=== PATIENT | female | born 2000 | race Caucasian/White ===

== ENCOUNTER 2023-03-02 22:51 | Emergency (ER) | payer OTHER, SELFPAY ==
[2023-03-02 22:55] VITALS: BP 140/92; PULSE 88; RESP 18; TEMP 36.8; O2SAT 98; BMI 44.4
--- NOTE | 2023-03-02 23:06 | ECG_ITS ---
[facility] Test Date: 2023-03-02 Pat Name: Estefania Arriaga Department: Room: - Gender: Female Security Assessor: : 2000 Requested By: MELISSA HYATT Order Number: [id number] Reading MD: MELISSA HYATT Measurements Intervals [place] Rate: 120 P: -8 CO: 178 QRS: 3 QRSD: 70 T: 43 QT: 318 QTc: 389 Interpretive Statements 1120 Sinus tachycardia 3114 Cannot rule out anterior myocardial infarction, age undetermined 9150 abnormal ECG No previous ECG available for comparison Electronically Signed On 03-04-2023 6:22:49 EDT by MELISSA HYATT
--- NOTE | 2023-03-02 23:06 | ED_ITS ---
HPI - Psych General Chief Complaint: Psychiatric Symptoms Stated Complaint: SUCIDIAL Time Seen by Provider: 03/02/23 23:06 Source: Reports patient Mode of arrival: ambulance Limitations: Reports no limitations History of Present Illness HPI Narrative: the patient presented to us after she had suicidal thoughts her aunt and cousin as well we were worried about her, and he the patient expressed to them after she had a fight with her that she wants to kill herself by taking all her medication and her took her medication away from her Review of systems otherwise negative that the patient is not complaining of any pain at the moment or any other complaint Related Data Home Medications Medication Instructions Recorded Confirmed No Known Home Medications 03/02/23 03/02/23 Allergies Allergy/AdvReac Type Severity Reaction Status Date / Time naproxen [From Naprosyn] AdvReac Intermediate Nausea Verified 03/02/23 23:01 Review of Systems ROS Status of ROS 10 or more systems reviewed and unremarkable except as noted in history and below PFSH PFS Social History Smoking status: Current every day smoker Exam Narrative Exam Narrative: Nurses notes and vital signs reviewed and patient is not hypoxic. General: Well-appearing and in no apparent distress. Skin: Warm, dry, no pallor noted. No rash. Head: Normocephalic, atraumatic. Neck: Supple, non-tender. Eye: Pupils are equal, round and EOMI. No scleral icterus. Ears, Nose, Mouth, and Throat: TM are clear, no nasal mucosal hypertrophy. Oral mucosa is moist, no posterior oropharynx erythema, uvula is mid-line Cardiovascular: Regular Rate and Rhythm without murmur, gallop or rub. Respiratory: No accessory muscle use or respiratory distress. Lungs are clear to auscultation, no wheezing, rales or rhonchi Chest Wall: no tenderness Back: No midline thoracic or lumbar vertebral tenderness. No CVA tenderness Musculoskeletal: normal ROM, no calf or popliteal tenderness, no lower extremity edema/swelling GI: Abdomen is soft, non-distended. Normal bowel sounds. No masses appreciated. No tenderness to palpation. No rebound, guarding, or rigidity noted. Neurological: A&O x4. No cranial nerve dysfunction observed. No truncal ataxia. Moves all extremities. Sensation intact. Psychiatric: Cooperative and interactive. Normal mood and affect. Constitutional Vital Signs - 24 hr 03/02/23 22:55 03/02/23 23:30 Temperature 98.3 F Pulse Rate [Monitor] 88 Respiratory Rate 18 Blood Pressure [Right Arm] 140/92 H Pulse Oximetry 98 Oxygen Delivery Method Room Air Room Air Course Vital Signs Vital signs: Vital Signs Temperature 98.3 F 03/02/23 22:55 Pulse Rate 88 03/02/23 22:55 Respiratory Rate 18 03/02/23 22:55 Blood Pressure 140/92 H 03/02/23 22:55 Pulse Oximetry 98 03/02/23 22:55 Oxygen Delivery Method Room Air 03/02/23 22:55 Temperature 98.3 F 03/02/23 22:55 Pulse Rate 88 03/02/23 22:55 Respiratory Rate 18 03/02/23 22:55 Blood Pressure 140/92 H 03/02/23 22:55 Pulse Oximetry 98 03/02/23 22:55 Oxygen Delivery Method Room Air 03/02/23 23:30 MDM - Psych MDM Narrative Medical decision making narrative: the patient blood workup shows no acute significant pathology she was evaluated by [facility] and the patient was accepted by Dr. Adan for inpatient admission The patient did express that she wants to go [facility] before she was transferred and explained to her since her aunt and her cousin as well as to not okay with a safety plan that she still needs to be transferred at the moment to be evaluated due to the high risk of suicide and assessment at [facility] by the psychatrist is needed and pt is agreeble Lab Data Labs: Lab Results 03/02/23 03/02/23 Range/Units 23:07 23:17 WBC 12.7 H (4.0-11.0) 10^3/uL RBC 4.93 (4.20-5.40) 10^6/uL Hgb 12.8 (12.0-16.0) g/dL Hct 40.6 (36.0-48.0) % MCV 82.4 (81.0-99.0) fL MCH 26.0 L (26.7-34.0) pg MCHC 31.5 (29.9-35.2) g/dL RDW 14.9 (11.0-15.0) % Plt Count 248 (150-450) 10^3/uL MPV 12.3 (9.5-13.5) fL Neut % (Auto) 66.5 (43.0-75.0) % Lymph % (Auto) 25.8 (20.5-60.0) % [place] % (Auto) 6.8 (1.7-12.0) % Eos % (Auto) 0.4 L (0.9-7.0) % Baso % (Auto) 0.3 (0.2-2.0) % Neut # (Auto) 8.4 H (1.4-6.5) 10^3/uL Lymph # (Auto) 3.3 (1.2-3.8) 10^3/uL [place] # (Auto) 0.9 H (0.3-0.8) 10^3/uL Eos # (Auto) 0.1 (0.0-0.7) 10^3/uL Baso # (Auto) 0.0 (0.0-0.1) 10^3/uL Abs Immat Gran (auto) 0.03 (0.00-0.03) 10^3/uL Imm/Tot Granulo (auto) 0.2 (0.0-0.5) % Sodium 141 (136-145) mmol/L Potassium 3.5 (3.5-5.1) mmol/L Chloride 112 H (98-107) mmol/L Carbon Dioxide 25.9 (21.0-32.0) mmol/L Anion Gap 6.6 BUN 13.0 (7.0-18.0) mg/dL Creatinine 0.80 (0.55-1.02) mg/dL Est GFR ( Amer) >60 (>=60) Est GFR (Non-Af Amer) >60 (>=60) BUN/Creatinine Ratio 16.2 Glucose 105 (74-106) mg/dL Calcium 9.0 (8.5-10.1) mg/dL Total Bilirubin 0.6 (0.2-1.0) mg/dL AST 17 (15-37) U/L ALT 34 (14-59) U/L Alkaline Phosphatase 83 (46-116) U/L Total Protein 7.5 (6.4-8.2) g/dL Albumin 3.6 (3.4-5.0) g/dL Globulin 3.9 g/dL Albumin/Globulin Ratio 0.9 Urine HCG, Qual Negative (NEGATIVE) Salicylates <2.8 (<=19.9) mg/dL Urine Opiates Screen Negative (NEGATIVE) Ur Buprenorphine Scrn Negative (NEGATIVE) Ur Oxycodone Screen Negative (NEGATIVE) Urine Methadone Screen Negative (NEGATIVE) Ur Propoxyphene Screen Negative (NEGATIVE) Acetaminophen <2.0 L (10.0-30.0) ug/mL Ur Barbiturates Screen Negative (NEGATIVE) U Tricyclic Antidepress Negative (NEGATIVE) Ur Phencyclidine Scrn Negative (NEGATIVE) Ur Amphetamines Screen Negative (NEGATIVE) U Methamphetamines Scrn Negative (NEGATIVE) U Benzodiazepines Scrn Negative (NEGATIVE) Urine Cocaine Screen Negative (NEGATIVE) U Cannabinoids Screen Negative (NEGATIVE) Ethanol Quant <3 mg/dL Discharge Plan Discharge Chief Complaint: Psychiatric Symptoms Clinical Impression: Medical clearance for psychiatric admission, Depression with suicidal ideation Patient Disposition: [facility] Time of Disposition Decision: 02:26 Discharge location: [facility] Condition: Good Mode of Transportation: EMS Prescriptions / Home Meds: No Action No Known Home Medications Referrals: Physician,Non-Staff, MD [Primary Care Provider] - 1 week
[2023-03-02 23:28] LABS: Basophils Percent Auto 0.3 % (0.2-2.0); Eosinophils Absolute Auto 0.1 10^3/uL (0.0-0.7); Eosinophils Percent Auto 0.4 % (0.9-7.0); Hematocrit 40.6 % (36.0-48.0); Hemoglobin 12.8 g/dL (12.0-16.0); Immature Granulocytes Abs Auto 0.03 10^3/uL (0.00-0.03); Immature Granulocytes Pct Auto 0.2 % (0.0-0.5); Lymphocytes Absolute Auto 3.3 10^3/uL (1.2-3.8); Lymphocytes Percent Auto 25.8 % (20.5-60.0); Mean Corpuscular HGB Conc 31.5 g/dL (29.9-35.2); Mean Corpuscular Volume 82.4 fL (81.0-99.0); Mean Platelet Volume 12.3 fL (9.5-13.5); Monocytes Absolute Auto 0.9 10^3/uL (0.3-0.8); Monocytes Percent Auto 6.8 % (1.7-12.0); Neutrophils Absolute Auto 8.4 10^3/uL (1.4-6.5); Neutrophils Percent Auto 66.5 % (43.0-75.0); Platelet Count 248 10^3/uL (150-450); Red Blood Count 4.93 10^6/uL (4.20-5.40); Red Cell Distribution Width 14.9 % (11.0-15.0); White Blood Count 12.7 10^3/uL (4.0-11.0)
[2023-03-02 23:33] LABS: HCG Qualitative Urine* NEGATIVE (NEGATIVE)
--- NOTE | 2023-03-02 23:35 | PC.NURSE ---
CONSTANT OBSERVER AT BEDSIDE. FAMILY/FRIENDS AT BEDSIDE
[2023-03-02 23:38] LABS: Amphetamine Screen Urine NEGATIVE (NEGATIVE); Benzodiazepines Screen Urine NEGATIVE (NEGATIVE); Cannabinoid Screen Urine NEGATIVE (NEGATIVE); Cocaine Screen Urine NEGATIVE (NEGATIVE); Methadone Screen Urine NEGATIVE (NEGATIVE); Methamphetamines Screen Urine NEGATIVE (NEGATIVE); Opiate Screen Urine NEGATIVE (NEGATIVE); Phencyclidine Screen Urine NEGATIVE (NEGATIVE); Tricyclic Antidepressant Urine NEGATIVE (NEGATIVE)
[2023-03-02 23:39] LABS: Ethanol <3 mg/dL
[2023-03-02 23:39] LABS: Barbiturates Screen Urine NEGATIVE (NEGATIVE); Buprenorphine Screen Urine NEGATIVE (NEGATIVE); Oxycodone Screen Urine NEGATIVE (NEGATIVE)
[2023-03-02 23:44] LABS: Alanine Aminotransferase 34 U/L (14-59); Albumin Globulin Ratio 0.9; Albumin Level 3.6 g/dL (3.4-5.0); Alkaline Phosphatase 83 U/L (46-116); Anion Gap 6.6; Aspartate Amino Transferase 17 U/L (15-37); BUN Creatinine Ratio 16.2; Bilirubin Total 0.6 mg/dL (0.2-1.0); Carbon Dioxide 25.9 mmol/L (21.0-32.0); Chloride 112 mmol/L (98-107); Estimated GFR (African America >60 (>=60); Estimated GFR (Non-African Ame >60 (>=60); Globulin 3.9 g/dL; Glucose 105 mg/dL (74-106); Potassium 3.5 mmol/L (3.5-5.1); Sodium 141 mmol/L (136-145); Total Protein 7.5 g/dL (6.4-8.2)
[2023-03-02 23:48] LABS: Salicylate <2.8 mg/dL (<=19.9)
[2023-03-02 23:50] LABS: Acetaminophen <2.0 ug/mL (10.0-30.0)
--- NOTE | 2023-03-03 00:04 | PC.NURSE ---
PATIENT ON PHONE WITH [facility] AT THIS TIME
--- NOTE | 2023-03-03 01:10 | PC.NURSE ---
DR. GUY ON PHONE WITH PEDRO FROM [facility] [[email or web address] STATES SHE IS RECOMMENDING PATIENT BE SENT TO INPATIENT FACILITY FOR FURTHER EVALUATION. THERE IS NO PINK SLIP AT THIS TIME IN PLACE, BUT IF PATIENT DOES TRY TO LEAVE PINK SLIP CAN BE INITIATED AT THAT TIME. PATIENT CALM LAUGHING WITH FAMILY AT BEDSIDE. RN OFFERED PATIENT DRINKS AND MEAL, PATIENT DENIES NEEDS AT THIS TIME. PATIENT STATES SHE WOULD LIKE HER PHONE BACK NOT TO CALL HER . PATIENT HAS HER AUNT AT BEDSIDE. PATIENT STATES SHE IS READY TO GO HOME. HAS NO PLANS FOR SELF HARM. STATES I WOULD LIKE TO PISS MY MOTHER IN LAW OFF BY LIVING . CONSTANT OBSERVER CONTINUES TO REMAIN AT BEDSIDE. AWAITING FURTHER INSTRUCTIONS FROM [facility] [[email or web address]].
--- NOTE | 2023-03-03 02:05 | PC.NURSE ---
PATIENT LAUGHING WITH FAMILY AND AUNT AT BEDSIDE. NO LONGER ADMITS TO SELF HARM. RN AND PHYSICIAN AT BEDSIDE TO NOTIFIY PATIENT OF PINK SLIP STATUS. PATIENT IS CALM AND AGREES WITH PLAN TO BE EVALUATED AT [facility].
--- NOTE | 2023-03-03 02:15 | PC.NURSE ---
CONSTANT OBSERVER AT BEDSIDE
== END 2023-03-03 02:52 ==
PROVIDERS: Emergency Provider Emergency Medicine
DX: R45.851 Suicidal ideations (principal); F32.A Depression, unspecified
CPT/HCPCS: 36415; 80053; 80179; 80307; 80320; 80329; 84703; 85025; 93005; 99285

== ENCOUNTER 2023-04-18 07:55 | Emergency (ER) | payer OTHER, SELFPAY ==
[2023-04-18 08:01] VITALS: BP 146/92; PULSE 98; RESP 18; TEMP 36.6; O2SAT 97; BMI 41.8
--- NOTE | 2023-04-18 08:22 | ED_ITS ---
HPI - Nausea/Vomiting/Diarrhea General Chief complaint: Nausea/Vomiting/Diarrhea Stated complaint: VOMITING Time Seen by Provider: 04/18/23 08:22 Source: patient Mode of arrival: walk-in Limitations: no limitations History of Present Illness HPI Narrative: Patient process the emergency department complaining of nausea, vomiting, and diarrhea. Patient states symptoms started on Saturday. She is unable to keep anything down. She feels dehydrated. She denies any hematemesis, melena, hematochezia. There are no sick contacts in the household. Unsure if she ate something that got her sick. She states she is on her menses currently and she had a miscarriage last month so she is concerned that her blood levels could be low. She is not passing any clots. She denies any fever, chills, or cough. She denies any chest, shortness of breath. She denies any flank pain, hematuria, dysuria. Related Data Previous Rx's Medication Instructions Recorded ondansetron HCl 4 mg tablet 4 mg PO Q6H PRN nausea and 04/18/23 vomiting #10 tabs Allergies Allergy/AdvReac Type Severity Reaction Status Date / Time Penicillins Allergy Severe Vomiting Verified 04/18/23 08:00 amoxicillin AdvReac Intermediate Nausea Verified 04/18/23 08:01 naproxen [From Naprosyn] AdvReac Intermediate Nausea Verified 03/02/23 23:01 Review of Systems ROS Status of ROS 10 or more systems reviewed and unremarkable except as noted in history and below [facility] Social History Smoking status: Current some day smoker Exam Narrative Exam Narrative: Nurses notes and vital signs reviewed and patient is not hypoxic. General: Nontoxic, Well-appearing and in no apparent distress. Skin: Warm, dry, no pallor noted. No Rash Head: Normocephalic, atraumatic. Neck: Supple, non-tender. Eye: Pupils are equal, round and EOMI. No scleral icterus. Ears, Nose, Mouth, and Throat: TM clear, no posterior oropharynx erythema or nasal mucosal hypertrophy, uvula is mid-line Oral mucosa is moist Cardiovascular: Regular Rate and Rhythm without murmur, gallop or rub. Respiratory: No accessory muscle use or respiratory distress. Lungs are clear to auscultation, no wheezing, rales or rhonchi Chest Wall: no tenderness Back: No midline thoracic or lumbar vertebral tenderness. No CVA tenderness Musculoskeletal: normal ROM, no calf or popliteal tenderness, no lower extremity edema/swelling GI: obese, Abdomen is soft, non-distended. Normal bowel sounds. No masses appreciated. No tenderness to palpation. No rebound, guarding, or rigidity noted. Neurological: A&O x4. No cranial nerve dysfunction observed. No truncal ataxia. Moves all extremities. Sensation intact. Psychiatric: Cooperative and interactive. Normal mood and affect. Constitutional Vital Signs, click to edit/add: Last Vital Signs Temp 97.8 F 04/18/23 08:01 Pulse 98 H 04/18/23 08:01 Resp 18 04/18/23 08:01 BP 146/92 H 04/18/23 08:01 Pulse Ox 97 04/18/23 08:01 O2 Del Method Room Air 04/18/23 08:01 Course Vital Signs Vital signs: Vital Signs Temperature 97.8 F 04/18/23 08:01 Pulse Rate 98 H 04/18/23 08:01 Respiratory Rate 18 04/18/23 08:01 Blood Pressure 146/92 H 04/18/23 08:01 Pulse Oximetry 97 04/18/23 08:01 Oxygen Delivery Method Room Air 04/18/23 08:01 Temperature 97.8 F 04/18/23 08:01 Pulse Rate 98 H 04/18/23 08:01 Respiratory Rate 18 04/18/23 08:01 Blood Pressure 146/92 H 04/18/23 08:01 Pulse Oximetry 97 04/18/23 08:01 Oxygen Delivery Method Room Air 04/18/23 08:01 MDM - Nausea/Vomiting/Diarrhea MDM Narrative Medical decision making narrative: Zofran and IV fluids were ordered. We were unable to get an IV. After 2 attempts the patient stated she did not want the IV fluids. She was given Zofran ODT. Patient tolerated by mouth. She is nontoxic, stable for outpatient follow-up and treatment. At this time the patient is without objective evidence of an acute process requiring hospitalization or inpatient management. The patient has remained hemodynamically stable. No additional indication for emergent studies at this time. I answered all questions. Discussed discharge instructions including standard anticipatory guidance and what should prompt a return to the emergency department, including if they get worse are not getting better or develops any new or concerning symptoms. I've given them specific time frame in which to follow-up, and who to follow-up with. The patient demonstrates understanding. Patient is nontoxic and stable for discharge with outpatient follow-up. This note was created with the assistance of a speech recognition program. Although the intention is to generate documents that actually reflects the content of the visit, no guarantees can be provided that every mistake has been identified and corrected by editing. Differential Diagnosis Differential diagnosis: Likely food poisoning, gastroenteritis and dehydration Medical Records Attestation: I reviewed the patient's medical records. Lab Data Attestation: I reviewed the patient's lab results. Labs: Lab Results 04/18/23 Range/Units 08:50 WBC 8.0 (4.0-11.0) 10^3/uL RBC 4.81 (4.20-5.40) 10^6/uL Hgb 12.5 (12.0-16.0) g/dL Hct 40.4 (36.0-48.0) % MCV 84.0 (81.0-99.0) fL MCH 26.0 L (26.7-34.0) pg MCHC 30.9 (29.9-35.2) g/dL RDW 14.7 (11.0-15.0) % Plt Count 255 (150-450) 10^3/uL MPV 12.2 (9.5-13.5) fL Neut % (Auto) 65.9 (43.0-75.0) % Lymph % (Auto) 24.8 (20.5-60.0) % [place] % (Auto) 7.6 (1.7-12.0) % Eos % (Auto) 1.0 (0.9-7.0) % Baso % (Auto) 0.5 (0.2-2.0) % Neut # (Auto) 5.3 (1.4-6.5) 10^3/uL Lymph # (Auto) 2.0 (1.2-3.8) 10^3/uL [place] # (Auto) 0.6 (0.3-0.8) 10^3/uL Eos # (Auto) 0.1 (0.0-0.7) 10^3/uL Baso # (Auto) 0.0 (0.0-0.1) 10^3/uL Abs Immat Gran (auto) 0.02 (0.00-0.03) 10^3/uL Imm/Tot Granulo (auto) 0.2 (0.0-0.5) % Sodium 142 (136-145) mmol/L Potassium 4.1 (3.5-5.1) mmol/L Chloride 106 (98-107) mmol/L Carbon Dioxide 29.2 (21.0-32.0) mmol/L Anion Gap 10.9 BUN 14.0 (7.0-18.0) mg/dL Creatinine 0.72 (0.55-1.02) mg/dL Est GFR ( Amer) >60 (>=60) Est GFR (Non-Af Amer) >60 (>=60) BUN/Creatinine Ratio 19.4 Glucose 104 (74-106) mg/dL Calcium 9.2 (8.5-10.1) mg/dL Discharge Plan Discharge Chief Complaint: Nausea/Vomiting/Diarrhea Clinical Impression: Gastroenteritis, Nausea & vomiting Patient Disposition: Home, Self-Care Time of Disposition Decision: 09:30 Condition: Good Mode of Transportation: Private Vehicle Prescriptions / Home Meds: New ondansetron HCl 4 mg tablet 4 mg PO Q6H PRN (Reason: nausea and vomiting) Qty: 10 0RF Instructions: Gastroenteritis (ED), Acute Nausea and Vomiting (ED) Stand Alone Forms: Portal Instructions Referrals: AMBROSE RICKETTS APRN [Physician] - 1 week Physician,Non-Staff, [Primary Care Provider] - 1 week Discharge Date/Time: 04/18/23 09:39
[2023-04-18] MEDS: 0.9 % SODIUM CHLORIDE 1,000 ML 999 ML IV (08:35)
[2023-04-18] MEDS: ONDANSETRON 4 MG RAPDIS TABLET SL (08:49)
[2023-04-18 08:57] LABS: Basophils Percent Auto 0.5 % (0.2-2.0); Eosinophils Absolute Auto 0.1 10^3/uL (0.0-0.7); Hematocrit 40.4 % (36.0-48.0); Hemoglobin 12.5 g/dL (12.0-16.0); Immature Granulocytes Abs Auto 0.02 10^3/uL (0.00-0.03); Immature Granulocytes Pct Auto 0.2 % (0.0-0.5); Lymphocytes Percent Auto 24.8 % (20.5-60.0); Mean Corpuscular HGB Conc 30.9 g/dL (29.9-35.2); Mean Platelet Volume 12.2 fL (9.5-13.5); Monocytes Absolute Auto 0.6 10^3/uL (0.3-0.8); Monocytes Percent Auto 7.6 % (1.7-12.0); Neutrophils Absolute Auto 5.3 10^3/uL (1.4-6.5); Neutrophils Percent Auto 65.9 % (43.0-75.0); Platelet Count 255 10^3/uL (150-450); Red Blood Count 4.81 10^6/uL (4.20-5.40); Red Cell Distribution Width 14.7 % (11.0-15.0)
[2023-04-18 09:08] LABS: Anion Gap 10.9; BUN Creatinine Ratio 19.4; Calcium 9.2 mg/dL (8.5-10.1); Carbon Dioxide 29.2 mmol/L (21.0-32.0); Chloride 106 mmol/L (98-107); Estimated GFR (African America >60 (>=60); Estimated GFR (Non-African Ame >60 (>=60); Glucose 104 mg/dL (74-106); Potassium 4.1 mmol/L (3.5-5.1); Sodium 142 mmol/L (136-145)
== END 2023-04-18 09:39 | disposition home or self-care (01) ==
PROVIDERS: Emergency Provider Emergency Medicine
DX: K52.9 Noninfective gastroenteritis and colitis, unspecified (principal); R11.2 Nausea with vomiting, unspecified; F17.210 Nicotine dependence, cigarettes, uncomplicated
CPT/HCPCS: 36415; 80048; 85025; 99284

== ENCOUNTER 2024-02-28 11:04 | Emergency (ER) | payer SELFPAY ==
[2024-02-28 11:08] VITALS: BP 139/77; PULSE 69; TEMP 36.7; O2SAT 97
[2024-02-28 11:46] LABS: Internal Control Within Normal Limits; SARS-CoV-2 Ag NEGATIVE (NEGATIVE); Strep A Antigen Screen Negative
--- NOTE | 2024-02-28 12:37 | ED_ITS ---
HPI HPI - General Adult General Chief complaint: Upper Respiratory Infection Stated complaint: SORE THROAT/NASAL CONGESTION Time Seen by Provider: 02/28/24 11:54 Source: patient Mode of arrival: walk-in Limitations: no limitations History of Present Illness HPI narrative: Patient is a 23-year-old female who is presenting to the ER today with chief complaint of sinus congestion. Patient has mild sinus pressure, mild sore throat, moist cough. No severe headache, no neck pain, no ear pain. No abdominal pain, nausea, vomiting. Patient chief concern is that she is here for a COVID test because her work will not let her come back to unless she has a negative COVID test. Patient is a [facility] [employer] at the [facility]. All systems are negative except as noted/marked. All systems reviewed and otherwise negative. Nurses note and vital signs reviewed and patient is not hypoxic. General: The patient appears well and in no apparent distress. Patient is resting comfortably on cart. Patient is not toxic, lethargic, or listless Skin: Warm, dry, no pallor noted. There is no rash noted. No petechiae, purpura. Head: Normocephalic, atraumatic, No tenderness to palpation to bilateral frontal or maxillary sinus. Eye: Normal conjunctiva, no drainage, EOMI. PERRL Ears, Nose, Mouth, and Throat: oral mucosa is moist. Clear drainage is noted to the posterior pharynx. Nares patent. Mouth without vesicles. Cardiovascular: Regular Rate and Rhythm, no murmur, gallop, rub Respiratory: Patient is in no distress, no accessory muscle use, lungs are clear to auscultation, no wheezing, rales or rhonchi Back: non-tender, GI: Soft, obese, Musculoskeletal: Patient has full range of motion of all of the extremities, no motor, sensory, or focal neurological deficits Neurological: A&O x4, normal speech Psychiatric: Cooperative Related Data Previous Rx's ?Medication ?Instructions ?Recorded ondansetron HCl 4 mg tablet 4 mg PO Q6H PRN nausea and 04/18/23 vomiting #10 tabs Allergies Allergy/AdvReac Type Severity Reaction Status Date / Time Penicillins Allergy Severe Vomiting Verified 04/18/23 08:00 amoxicillin AdvReac Intermediate Nausea Verified 04/18/23 08:01 naproxen [From Naprosyn] AdvReac Intermediate Nausea Verified 03/02/23 23:01 Opioid HPI Opioid Management Most Recent Opioid Data: Last Pain Scale 6 04/18/23 08:05 Ur Phencyclidine Scrn Negative (NEGATIVE) 03/02/23 23:07 PFSH PFSH Social History Smoking status: Current some day smoker Exam Constitutional Vital Signs, click to edit/add: Last Vital Signs Temp 98.0 F 02/28/24 11:08 Pulse 69 02/28/24 11:08 Resp 18 02/28/24 11:08 BP 139/77 02/28/24 11:08 Pulse Ox 97 02/28/24 11:08 O2 Del Method Room Air 02/28/24 11:08 Course Vital Signs Vital signs: Vital Signs Temperature 98.0 F 02/28/24 11:08 Pulse Rate 69 02/28/24 11:08 Respiratory Rate 18 02/28/24 11:08 Blood Pressure 139/77 02/28/24 11:08 Pulse Oximetry 97 02/28/24 11:08 Oxygen Delivery Method Room Air 02/28/24 11:08 Temperature 98.0 F 02/28/24 11:08 Pulse Rate 69 02/28/24 11:08 Respiratory Rate 18 02/28/24 11:08 Blood Pressure 139/77 02/28/24 11:08 Pulse Oximetry 97 02/28/24 11:08 Oxygen Delivery Method Room Air 02/28/24 11:08 Medical Decision Making MDM Narrative Medical decision making narrative: Patient rapid strep, COVID, and influenza are negative. Patient asked for a copy of the result of the lab tests so they can be taken back to work. Work note was given for today. Education and symptomatic treatment was discussed at bedside. No questions at discharge Lab Data Labs: Lab Results 02/28/24 Range/Units 11:20 SARS-CoV-2 Ag (CV2AG) Negative (NEGATIVE) Streptococcus Screen Negative Discharge Plan Discharge Stand Alone Forms: Portal Instructions Chief Complaint: Upper Respiratory Infection Clinical Impression: Sore throat, Sinus congestion Patient Disposition: Home, Self-Care Condition: Fair Prescriptions / Home Meds: No Action ondansetron HCl 4 mg tablet 4 mg PO Q6H PRN (Reason: nausea and vomiting) Qty: 10 0RF Print Language: Faroese Instructions: Strep Throat (ED), Upper Respiratory Infection (ED), Cold Symptoms (ED), How to Use Nasal [place] (ED) Additional Instructions: Increase fluids at home, Gatorade, Powerade, or water. Alternate using DayQuil, NyQuil, and Flonase. Add Mucinex as well as needed. Alternate Tylenol and Motrin every 4 hours to help with fever control, body aches or joint pain. Use [id number] vitamin C, vitamin D3, and zinc to help fight infection and help with her immune system. Referrals: Physician,Non-Staff, MD [Primary Care Provider] - 1 week Discharge Date/Time: 02/28/24 12:50
== END 2024-02-28 12:50 | disposition home or self-care (01) ==
PROVIDERS: Emergency Provider Emergency Medicine
DX: R09.81 Nasal congestion (principal); J02.9 Acute pharyngitis, unspecified; F17.200 Nicotine dependence, unspecified, uncomplicated; Z20.822 Contact with and (suspected) exposure to COVID-19
CPT/HCPCS: 87070; 87811; 87880; 99283